=== PATIENT | male | born 2000 | race Caucasian/White ===

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

== ENCOUNTER 2022-06-18 19:03 | Emergency (ER) | payer BC, SELFPAY ==
[2022-06-18 19:20] VITALS: BP 106/67; PULSE 93; RESP 18; TEMP 36.7; O2SAT 97; BMI 22.3
--- NOTE | 2022-06-18 19:28 | HMH.EDUTC ---
[facility] [place] Disposition Clinical Impression: Viral syndrome, Exposure to COVID-19 virus Disposition: Home, Self-Care Condition on Discharge: Good Instructions: DI for COVID-19 (Suspected or Confirmed ), Preventing the Spread of Coronavirus Discharge Instructions Additional Instructions: Drink plenty of fluids. Take tylenol for pain or fever. Return if you begin to have difficulty breathing. Follow up with your regular doctor. GO TO THE ER FOR ANY WORSENING SYMPTOMS Quarantine until you know the results of your covid-19 test. If it is positive, the health department should call you and give you further instructions about your length of Quarantine and other things. Notify your school or workplace of your results and follow their instructions regarding return to work/school. Referrals: Jose Tiwari MD [Primary Care Provider] - Forms: Work/School Release Time of Disposition: 19:53 Medical Decision Making - Medical Records Medical records reviewed: No: I reviewed the patient's medical records. - Ward Inquiry Pt receiving controlled substance: No Vital Signs: 06/18/22 19:20 Temperature 98.0 F Temperature Source Oral Pulse Rate [Left] 93 H Respiratory Rate 18 Blood Pressure [Right Arm] 106/67 L Blood Pressure Mean [Right Arm] 80 02 Sat by Pulse Oximetry 97 [facility] [place] HPI - General Stated complaint: covid test Time Seen by Provider: 06/18/22 19:28 Mode of Arrival: Ambulatory Source of Information: Patient Limitations: No Limitations Description of Symptoms (Recalled from Triage Doc. by RN): patient comes in for covid test. patient was exposed a week ago. patient complains of cough, lethargy, headache HEENT Symptoms (Recalled from RN notes): Yes Resp Symptoms (Recalled from RN notes): Yes Skin Symptoms (Recalled from RN notes): No MS Symptoms (Recalled from RN notes): No Functional Status (Recalled from RN notes): n/a - History of Present Illness Provider Complaint: He states that he has felt bad for the past 2 days, He has had body aches, chills, scratchy sore throat and he has felt very bad. He denies any significant chest congestion, cough, and shortness of breath. - Related Data Home Medications Medication Instructions Recorded Confirmed loratadine 10 mg tablet 10 mg PO DAILY 09/25/21 09/25/21 Allergies Allergy/AdvReac Type Severity Reaction Status Date / Time cefdinir [From OMNICEF] Allergy Unknown Verified 06/18/22 19:28 Penicillins [PENICILLINS] Allergy Unknown Verified 06/18/22 19:28 Sulfa (Sulfonamide Allergy Unknown Verified 06/18/22 19:28 Antibiotics) [SULFA (SULFONAMIDE ANTIBIOTICS)] - Worker's Comp Is this a Worker's Comp case?: No [facility] History - Hepatitis A Screen Attestation statement:: This patient has been screened for Hepatitis A risk factors. I have reviewed the patient's past medical history: Yes Medical History: Denies:: Asthma, Cancer, Chronic Obstructive Pulmonary Disease (COPD), Diabetes Mellitus Type 1, Diabetes Mellitus Type 2, Hyperlipidemia, Hypertension Other Medical History: Reports: Sinus Problems Laterality Cases: Bilateral: Tonsillectomy Other Surgeries: Yes: No Previous Surgery Comment: tonsillectomy - Social History Smoking Status: Never smoker # Packs/Day (cigarettes): 0 #Yrs smoked (if former smoker): 0 Alcohol Intake: never Alcohol Intake Frequency:: other Substance Use Type: denies use Occupational Status: other Family Hx:: Heart Attack, Diabetes, Cancer ROS Obtained: Yes All systems reviewed & no additional complaints - Constitutional Constitutional: Reports body ache, Reports chills, Denies fever(s), Reports poor appetite, Reports malaise - Eyes Eyes: Denies eye discharge - ENT Ears, Nose, Mouth, and Throat: Denies dizziness, Denies otalgia, Reports sore throat - Cardiovascular Cardiovascular: Denies chest pain - Respiratory Respiratory: Denies chest congestion, Denies cough Physical Exa
[2022-06-18 19:54] VITALS: BP 106/67; PULSE 93; RESP 18; TEMP 36.7
== END 2022-06-18 20:00 | disposition home or self-care (01) ==
PROVIDERS: Emergency Provider Nurse Practitioner Family; PCP Family Medicine
DX: U07.1 COVID-19 (principal); B34.9 Viral infection, unspecified; J02.9 Acute pharyngitis, unspecified; R53.81 Other malaise; R51.9 Headache, unspecified; Z79.899 Other long term (current) drug therapy; Z88.0 Allergy status to penicillin; Z88.2 Allergy status to sulfonamides; Z88.8 Allergy status to other drugs, medicaments and biological substances; Z82.49 Family history of ischemic heart disease and other diseases of the circulatory system; Z83.3 Family history of diabetes mellitus; Z80.9 Family history of malignant neoplasm, unspecified
CPT/HCPCS: 99213; C9803; G0463; U0003; U0005

== ENCOUNTER → 2023-05-28 16:15 | Outpatient (CLI) | payer BC, SELFPAY ==
[2023-05-30 20:10] LABS: Neisseria gonorrhoeae, NAA Negative (Negative)
== END ==
PROVIDERS: PCP Nurse Practitioner Family; Visit Provider Nurse Practitioner Family
DX: R10.9 Unspecified abdominal pain (principal); R11.0 Nausea; R30.9 Painful micturition, unspecified; M54.9 Dorsalgia, unspecified; N48.89 Other specified disorders of penis
CPT/HCPCS: 87086; 87491; 87591

== ENCOUNTER 2024-04-20 19:18 | Emergency (ER) | payer SELFPAY ==
[2024-04-20 19:30] VITALS: BP 118/63; PULSE 85; RESP 18; TEMP 36.9; O2SAT 96; BMI 22.3
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
[2024-04-20 19:53] LABS: UTC Strep Screen (Rapid) Negative (Negative)
[2024-04-20 20:19] VITALS: BP 118/63; PULSE 85; RESP 18; TEMP 36.9; O2SAT 96
== END 2024-04-20 20:18 | disposition home or self-care (01) ==
PROVIDERS: Emergency Provider Nurse Practitioner Family; PCP Nurse Practitioner Family
DX: J01.90 Acute sinusitis, unspecified (principal); J02.9 Acute pharyngitis, unspecified; R05.9 Cough, unspecified; R09.81 Nasal congestion
CPT/HCPCS: 87880; 99212; 99214; G0463

== ENCOUNTER 2024-04-29 02:48 | Emergency (ER) | payer SELFPAY ==
[2024-04-29 02:49] VITALS: BP 121/87; PULSE 76; RESP 12; TEMP 36.8; O2SAT 100; BMI 22.3
--- NOTE | 2024-04-29 02:54 | ECG_ITS ---
APPROVED REPORT Exam: Resting ECG HR:64 bpm ECG Measurements Heart Rate 64 AXES CO 151 P 77 QRSd 97 QRS 97 QT 387 T 64 QTc 396 Conclusion Sinus rhythm Electronically signed by : BHAVANA VARGAS, 04/29/2024 06:59:32
[2024-04-29 03:00] VITALS: BP 127/88; PULSE 75; RESP 14; O2SAT 97
--- NOTE | 2024-04-29 03:17 | XR_ITS ---
PROCEDURE INFORMATION: Exam: XR Chest Exam date and time: 04/29/2024 3:24 AM Age: 23 years old Clinical indication: Dyspnea; Additional info: SOA, cough TECHNIQUE: Imaging protocol: Radiologic exam of the chest. Views: 2 views. COMPARISON: CR XR RIBS LT MIN 3V W CXR1V 01/26/2021 5:06 PM FINDINGS: Lungs: Unremarkable. No consolidation. Pleural spaces: Unremarkable. No pleural effusion. No pneumothorax. Heart/Mediastinum: Unremarkable. No cardiomegaly. Bones/joints: Unremarkable. IMPRESSION: No acute cardiopulmonary findings.
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
[2024-04-29 03:30] VITALS: BP 108/76; PULSE 67; RESP 14; O2SAT 100
[2024-04-29 04:00] VITALS: BP 109/76; PULSE 67; RESP 14; O2SAT 96
[2024-04-29 04:30] VITALS: BP 109/77; PULSE 69; RESP 12; O2SAT 99
[2024-04-29] MEDS: levoFLOXacin 750 MG TABLET PO (04:52)
[2024-04-29 05:02] VITALS: BP 109/77; PULSE 69; RESP 14; TEMP 36.8; O2SAT 99
== END 2024-04-29 05:03 | disposition home or self-care (01) ==
PROVIDERS: Emergency Provider Emergency Medicine; PCP Nurse Practitioner Family
DX: R06.02 Shortness of breath (principal); J01.90 Acute sinusitis, unspecified
CPT/HCPCS: 71046; 93005; 99284

== ENCOUNTER 2024-11-11 09:43 | Emergency (ER) | payer SELFPAY ==
[2024-11-11 09:53] VITALS: BP 126/68; PULSE 70; RESP 18; TEMP 36.6; O2SAT 100; BMI 22.3
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
[2024-11-11 10:51] VITALS: BP 126/68; PULSE 70; RESP 18; TEMP 36.6
[2024-11-11 10:55] LABS: Coronavirus 19, PCR Not Detected (NotDetected); Influenza A, PCR Not Detected (NotDetected); Influenza B, PCR Not Detected (NotDetected)
== END 2024-11-11 10:52 | disposition home or self-care (01) ==
PROVIDERS: Emergency Provider Nurse Practitioner Family; PCP Nurse Practitioner Family
DX: K52.9 Noninfective gastroenteritis and colitis, unspecified (principal); R11.2 Nausea with vomiting, unspecified; R51.9 Headache, unspecified; R63.8 Other symptoms and signs concerning food and fluid intake
CPT/HCPCS: 87636; 99212; G0381

== ENCOUNTER 2024-11-18 14:45 | Emergency (ER) | payer SELFPAY ==
[2024-11-18 16:35] VITALS: BP 111/61; PULSE 109; RESP 21; TEMP 37.2; O2SAT 98; BMI 21.2
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
[2024-11-18 16:52] LABS: UTC Influenza A Antigen Positive (Negative)
[2024-11-18 16:53] LABS: UTC Influenza B Antigen Negative (Negative)
[2024-11-18 17:01] VITALS: BP 111/61; PULSE 109; RESP 21; TEMP 37.2; O2SAT 98
== END 2024-11-18 17:04 | disposition home or self-care (01) ==
PROVIDERS: Emergency Provider Nurse Practitioner; PCP Nurse Practitioner Family
DX: J11.1 Influenza due to unidentified influenza virus with other respiratory manifestations (principal); R50.9 Fever, unspecified; R42 Dizziness and giddiness; R05.9 Cough, unspecified; R09.81 Nasal congestion; M79.10 Myalgia, unspecified site; R51.9 Headache, unspecified
CPT/HCPCS: 87804; 99212; G0381